=== PATIENT | female | born 1950 ===

== ENCOUNTER 2018-03-02 06:16 | Day surgery (SDC) | payer OTHER | END 2018-03-02 16:40 | disposition home or self-care (01) | LOC: CIR.AMB 06:16 | DX: M13.842 Other specified arthritis, left hand (principal) ==

== ENCOUNTER 2021-08-06 08:00 | Outpatient (CLI) | payer OTHER | END 2021-08-06 08:30 | disposition home or self-care (01) | LOC: PPH VACUNA 08:00 | PROVIDERS: ATTEND Emergency Medicine Pediatric Emergency Medicine | DX: Z23 Encounter for immunization (principal) ==

== ENCOUNTER 2025-02-07 05:33 | Day surgery (SDC) | payer OTHER ==
[2025-02-01 07:28] VITALS: BP 158/75
[2025-02-01 07:33] LABS: BASO % 0.4 % (0.1-1.2); EOS # 0.25 (0.04-0.54); EOS % 3.4 % (0.7-7.0); HEMATOCRIT 42.4 % (34.1-44.9); HEMOGLOBIN 14.1 g/dL (11.2-15.7); LYMPH # 1.92 (1.18-3.74); LYMPH % 26.1 % (19.3-53.1); MEAN CORPUSCULAR HEMOGLOBIN 29.9 pg (25.6-32.2); MONO # 0.55 (0.24-0.82); MONO % 7.5 % (4.7-12.5); NEUT # 4.57 (1.56-6.13); NEUT % 62.2 % (34.0-71.1); PLATELET COUNT 205 K/uL (163-369); RED BLOOD COUNT 4.72 M/uL (3.93-5.22); RED CELL DISTRIBUTION WIDTH 12.7 % (11.6-14.4)
[2025-02-01 07:34] LABS: URINE APPEARANCE Clear; URINE BILIRRUBIN Negative (NEGATIVE); URINE BLOOD Negative; URINE COLOR Yellow; URINE KETONE Negative (NEGATIVE); URINE LEUKOCYTE Negative; URINE NITRATE Negative; URINE PROTEIN 30 (NEGATIVE); URINE UROBILINOGEN 0.2 E.U./dl
[2025-02-01 07:38] LABS: URINE BACTERIA 23.2 uL (0.0-1933); URINE EPITHELIAL CELLS 11.3 uL (0.0-38.8); URINE RBC 2.7 uL (0.0-20.8); URINE WBC 14.3 uL (0.0-23.2)
[2025-02-01 07:43] LABS: URINE CAST 0.29 uL (0.0-1.40); URINE GLUCOSE >=1000 MG/DL (NEGATIVE)
[2025-02-01 07:56] LABS: PARTIAL THROMBOPLASTIN TIME 24.5 SECONDS (22.0-34.0); PROTHROMBIN TIME 10.9 SECONDS (9.0-11.5)
[2025-02-01 08:12] LABS: ALBUMIN 3.8 gm/dL (3.4-5.0); BILIRUBIN TOTAL 0.52 mg/dL (0.3-1.2); CALCIUM 9.2 mg/dL (8.5-10.1); CREATININE SERUM 0.77 mg/dL (0.55-1.02); GFR 73.48; GLOBULINA 2.7 G/DL (2.4-3.5); POTASSIUM 4.07 mEq/L (3.5-5.1); TOTAL PROTEIN 6.5 gm/dL (6.4-8.2)
[~2025-02-07] VITALS: Ht 165.1 cm; Wt 60.3 kg
[~2025-02-07 05:33] MED LIST: ATACAND4 MG; FARXIGA5 MG; SYNTHROID88 MCG PO
[2025-02-07] MEDS ORDERED: LIDOCAINE HCL 1%/EPINEPHRINE 20ML VIAL IJ ONE (08:53)
[2025-02-07] MEDS ORDERED: BUPIVACAINE HCL/MPF 0.5% 30ML VIAL ONE (08:53)
[2025-02-07] MEDS ORDERED: CEFAZOLIN SODIUM 1,000 MG VIAL IV ONE (12:15)
[2025-02-07] MEDS ORDERED: MORPHINE SULFATE 4 MG/ML VIAL IV ONE (15:00)
[2025-02-07] MEDS ORDERED: ENALAPRILAT DIHYDRATE 1.25 MG/ML VIAL IV ONE ×2 (15:00→15:30)
== END 2025-02-07 16:25 | disposition home or self-care (01) ==
LOC: CIR.AMB 05:33
PROVIDERS: ATTEND Radiology Diagnostic Radiology
DX: T82.514A Breakdown (mechanical) of infusion catheter, initial encounter (principal); C50.912 Malignant neoplasm of unspecified site of left female breast